=== PATIENT | male | born 1980 | race Caucasian/White ===

== ENCOUNTER 2019-03-15 13:05 | Emergency (ER) | payer BC ==
[~2019-03-15] VITALS: Ht 182.9 cm; Wt 127.3 kg
[2019-03-15 13:05] VITALS: TEMP 96
[~2019-03-15 13:05] MED LIST: GLUCOPHAGE1000 MG PO; NIACIN500 MG PO; ZESTRIL 10MG10 MG PO; ZOCOR 20MG20 MG PO
[2019-03-15 13:25] LABS: BASO % 0.4 % (0.0-2.0); EOS # 0.2 (0.0-0.7); GRAN # 3.5 (1.4-6.5); GRAN % 47.5 % (42.2-75.2); HEMATOCRIT 40.9 % (42.0-52.0); HEMOGLOBIN 14.1 g/dl (13.5-18.0); LYMPH # 3.1 (1.2-3.4); LYMPH % 41.3 % (20.0-51.0); MEAN CELL VOLUME 85 fl (80.0-100.0); MEAN CORPUSCULAR HEMOGLOBIN 29 pg (27.0-31.0); MEAN CORPUSCULAR HGB CONC 35 g/dl (33.0-37.0); MEAN PLATELET VOLUME 9.8 fl (7.4-10.4); MONO # 0.6 (0.1-0.6); MONO % 8.5 % (1.7-9.3); PLATELET COUNT 184 K/mm3 (130-400)
[2019-03-15] MEDS ORDERED: ASPIRIN 81M81 MG/TA2 PO (13:26)
[2019-03-15 13:41] LABS: ALANINE AMINOTRANSFERASE 18 U/L (21-72); ALBUMIN 4.3 gm/dL (3.5-5.0); ALKALINE PHOSPHATASE 74 U/L (50-136); ANION GAP 12 mmol/L (7-16); AST,SGOT 30 U/L (15-37); BILIRUBIN,TOTAL 0.3 mg/dL (0.0-1.0); BLOOD UREA NITROGEN 11 mg/dL (9-20); CALCIUM 9.1 mg/dL (8.4-10.2); CARBON DIOXIDE 25 mmol/L (22-30); CHLORIDE 104 mmol/L (98-107); CREATINE KINASE 113 U/L (55-170); CREATININE, serum 0.72 (0.66-1.25); GLUCOSE 142 mg/dL (74-106); POTASSIUM 3.8 mmol/L (3.4-5.0); SODIUM 141 mmol/L (137-145)
[2019-03-15 13:53] LABS: TROPONIN-I < 0.012 ng/mL (0.000-0.035)
[2019-03-15 13:58] LABS: PROLACTIN 37.7 ng/mL (3.7-17.9)
[2019-03-15 16:46] VITALS: BP 132/68; PULSE 64
== END 2019-03-15 16:48 | disposition home or self-care (01) ==
LOC: COL.ER 13:05
PROVIDERS: Emergency Medicine
DX: R55 Syncope and collapse (principal); E11.9 Type 2 diabetes mellitus without complications; I10 Essential (primary) hypertension; Z79.84 Long term (current) use of oral hypoglycemic drugs; Z79.82 Long term (current) use of aspirin
CPT/HCPCS: J1885; J7030